=== PATIENT | male | born 1955 | race Caucasian/White ===

== ENCOUNTER 2019-07-08 23:24 | Emergency (ER) | payer OTHER ==
[~2019-07-08] VITALS: Ht 200.7 cm; Wt 162.8 kg
[~2019-07-08 23:24] MED LIST: ALLOPURINOL 30300 M2 PO; ALLOPURINOL 30300 M3 PO; ANDROGEL150 GM TOP; ATENOLOL 25 MG25 M1 PO; CIPRO250 M1; FINASTERIDE5 MG PO; HYDROCODON-ACE1 EAC7 PO; K-DUR10 MEQ PO; LORTAB 5-500 T1 EAC1; MINOCYCLINE HC100 M2 PO; MULTIVITAMINS PO; PRINZIDE 20-251 EACH PO; TAMSULOSIN HCL0.4 M1 PO
[2019-07-08 23:36] VITALS: BP 160/64
[2019-07-08] MEDS ORDERED: METFORMIN HCL500 MG PO (23:39)
[2019-07-08] MEDS ORDERED: BUPROPION XL300 MG PO (23:40)
[2019-07-08] MEDS ORDERED: TOPAMAX100 MG PO (23:40)
[2019-07-09] MEDS ORDERED: GENTAK5 ML TOP (00:06)
== END 2019-07-09 00:16 | disposition home or self-care (01) ==
LOC: M.ERS 23:24
DX: S05.01XA Injury of conjunctiva and corneal abrasion without foreign body, right eye, initial encounter (principal); I10 Essential (primary) hypertension; G47.30 Sleep apnea, unspecified; F17.290 Nicotine dependence, other tobacco product, uncomplicated; Z98.890 Other specified postprocedural states; X58.XXXA Exposure to other specified factors, initial encounter; Y92.89 Other specified places as the place of occurrence of the external cause; Y93.89 Activity, other specified; Y99.8 Other external cause status

== ENCOUNTER → 2021-02-23 | Outpatient (CLI) | payer MEDICARE ==
[~2021-02-23] MED LIST changes: +BUPROPION XL300 MG PO; +GENTAK5 ML TOP; +METFORMIN HCL500 MG PO; +TOPAMAX100 MG PO
[2021-02-23 12:13] LABS: ABSOLUTE BASOPHILS 0.1 thou/uL (0.0-0.2); ABSOLUTE EOSINOPHILS 0.3 thou/uL (0.0-0.7); ABSOLUTE MONOCYTES 0.4 thou/uL (0.0-1.2); ABSOLUTE NEUTROPHILS 3.6 thou/uL (1.6-8.1); BASOPHILS 1.1 %; EOSINOPHILS 5.5 %; HEMATOCRIT 43.3 % (42.0-52.0); HEMOGLOBIN 14.6 gm/dL (14.0-18.0); LYMPHOCYTES 18.8 %; MCH 30.6 pg (26.0-34.0); MCHC 33.7 g/dL (28.0-37.0); MCV 90.9 fL (80.0-100.0); MONOCYTES 7.6 %; NUCLEATED RBCS 0 /100WBC; PLATELET COUNT* 204 thou/uL (150-400); RBC 4.76 mil/uL (4.50-6.00); RDW-CV 15.1 % (10.5-14.5); WBC 5.4 thou/uL (4.0-11.0)
[2021-02-23 12:19] LABS: CALCIUM 9.1 mg/dL (8.5-10.1); POTASSIUM 4.3 mmol/L (3.5-5.1)
[2021-02-23 12:30] LABS: ALBUMIN 3.9 g/dL (3.4-5.0); TOTAL BILIRUBIN 1.1 mg/dL (<0.1-1.0); TOTAL PROTEIN 7.3 g/dL (6.4-8.2)
== END ==
LOC: M.LAB 11:20
PROVIDERS: ATTEND Internal Medicine
DX: R91.8 Other nonspecific abnormal finding of lung field (principal); I51.7 Cardiomegaly